=== PATIENT | female | born 1965 | race Caucasian/White ===

== ENCOUNTER 2024-04-02 11:05 | Day surgery (SDC) | payer SELFPAY ==
[2024-04-01 08:51] LABS: Absolute Eosinophils 0.6 K/uL (0-0.5); Absolute Lymphocytes (CBC) 1.6 K/uL (0.7-4.9); Absolute Monocytes 0.2 K/uL (0.1-1.3); Absolute Neutrophil 2.1 K/uL (1.8-8.0); Eosinophils % 12.2 % (0-4.4); Hematocrit 44.9 % (36.0-45.0); Hemoglobin 15.1 g/dL (12.0-15.0); Lymphocytes % 35.2 % (15.3-44.8); MCH 31.3 pg (27.0-35.0); MCHC 33.7 g/dL (32.0-36.0); MCV 93.1 fL (80-100); MPV 8.6 fL (7.6-11.3); Monocytes % 4.9 % (3.3-12.3); Neutrophils % 46.7 % (41.7-73.7); Nucleated Red Blood Cells % 0.5 % (0-0); Platelets 244 thou/uL (152-406); RBC Red Blood Cell Count 4.82 M/uL (3.86-4.86); Red Cell Distribution Width 13.6 % (12.1-15.2)
[2024-04-01 09:05] LABS: Anion Gap 0.8 mEq/L (5.0-15.0); Potassium 3.8 mEq/L (3.5-5.1)
--- NOTE | 2024-04-01 13:59 | EKG ---
Test Date: 2024-04-01 Test Time: 08:34:21 Distribution Coordinator: HENRY MEASUREMENT RESULTS: Intervals: Rate: 59 VA: 144 QRSD: 78 QT: 422 QTc: 417 [place]: P: 32 VA: 144 QRS: 12 T: 23 INTERPRETIVE STATEMENTS: Sinus bradycardia Low voltage QRS Cannot rule out Anterior infarct, age undetermined Abnormal ECG Compared to ECG 07/10/2022 10:42:32 Myocardial infarct finding now present Sinus rhythm no longer present Electronically Signed On 04-01-24 13:57:51 CDT by John Barahona
[2024-04-02] MEDS: Ringers Lactate 1,000 ML IV ONE (11:30)
[2024-04-02] MEDS ORDERED: MIDAZOLAM HCL 2 MG/2 ML INJ ONE (12:34)
[2024-04-02] MEDS ORDERED: LIDOCAINE 1% MPF 5 ML VIAL ONE (12:34)
[2024-04-02] MEDS ORDERED: KETOROLAC 30 MG/ML INJ ONE (12:34)
[2024-04-02] MEDS ORDERED: propofoL 200 MG/20 ML VIAL IV ONE (12:34)
[2024-04-02] MEDS ORDERED: ONDANSETRON 4 MG/2 ML VIAL ONE (12:34)
[2024-04-02] MEDS ORDERED: FENTANYL CITR 100 MCG/2 ML ONE (12:34)
[2024-04-02] MEDS: CEFAZOLIN SODIUM 2 GM/VIAL ONE (12:55)
[2024-04-02] MEDS: BUPIVACAINE 0.25% PF 30 ML VIAL ONE (13:09)
--- NOTE | 2024-04-02 13:30 | P.OP ---
Preoperative diagnosis: LEFT Posterior Shoulder Lipoma Postoperative diagnosis: LEFT Posterior Shoulder Lipoma Primary procedure: Excision of LEFT Posterior Shoulder Lipoma Anesthesia: GETA + Local Estimated blood loss: <5cc Specimen: LEFT Posterior Shoulder Lipoma Findings: 14cm x 8 cm x 5 cm LEFT Posterior Shoulder Lipoma Complications: None Drain(s): TRINIDAD drain (10 [place] Round TRINIDAD) Transferred to: Recovery Room Condition: Good
[2024-04-02 16:00] VITALS: BP 131/77; TEMP 97; O2SAT 99
--- NOTE | 2024-04-02 21:11 | OP ---
Date of Procedure: 04/02/2024 Surgeon: Jeffrey Martínez MD, Preoperative Diagnosis: Left posterior shoulder lipoma. Postoperative Diagnosis: Left posterior shoulder lipoma. Procedure Performed: Excision of left posterior shoulder lipoma. Anesthesia: General endotracheal plus local with 0.25% Marcaine. Estimated Blood Loss: Less than 5 cc. Specimen: Left posterior shoulder lipoma. Findings: Approximately 14 cm x 8 cm x 5 cm left posterior shoulder lipoma. Complications: None. Drains: 10-[place]ian round TRINIDAD drain placed. Disposition: The patient transferred to recovery room in good condition. Procedure In Detail: After informed consent was obtained, patient was brought to the operating room, prepped and draped in the usual sterile fashion after adequate anesthesia was achieved. I made a li near incision overlying the obvious left posterior shoulder lipoma using a 15 blade down to subcutane ous tissues. Electrocautery was used to dissect down to expose an obvious lipomatous mass which was multilobulated, at this point. I circumferentially dissected out using a combination of electrocaute ry and blunt dissection to pull the lipomatous mass into the surgical field and then ligated any stacy ched structures including feeding vessels using electrocautery. Minimal electrocautery was used thro ughout the procedure. The lipoma was then sent off for pathologic examination. The area was copious ly irrigated. Minimal hemostasis was required. No injury to any vital structures occurred throughou t the procedure. A 10-[place]ian round TRINIDAD drain was then brought onto the field. A separate inferior st ab incision was made and the drain was passed through this site. At this point, a drain stitch was p laced using 3-0 nylon suture to secure the drain. At this point, the drain was curled into position. At this point, a deep dermal 3-0 Vicryl sutures were placed in an interrupted fashion and the skin was then closed with a 4-0 Monocryl in a running fashion. Dermabond was placed over top. The patien t tolerated the procedure well without incident or complication and transferred to PACU in good condi tion. All counts were correct at the end of the case. TK/MODL Voice ID: [id number] Report ID: [id number]
== END 2024-04-02 15:20 | disposition home or self-care (01) ==
LOC: OR 11:05
PROVIDERS: ATTEND Surgery
PROC: 0JBF0ZZ Excision of Left Upper Arm Subcutaneous Tissue and Fascia, Open Approach (ICD-10-PCS; principal; 2024-04-02 12:30)
DX: D17.22 Benign lipomatous neoplasm of skin and subcutaneous tissue of left arm (principal); E78.00 Pure hypercholesterolemia, unspecified; F41.9 Anxiety disorder, unspecified
CPT/HCPCS: 36415; 80048; 85025; 88304; 93005; J2001; J2250; J2405; J2704; J3010; J7120